=== PATIENT | female | born 1965 | race Caucasian/White ===

== ENCOUNTER → 2021-05-21 | Outpatient (CLI) | payer OTHER ==
--- NOTE | 2021-05-22 13:22 | RAD ---
PROCEDURE: MG BILAT SCREEN+SISI HISTORY: The patient is 55 years old and is seen for Reason: SCREENING / Spl. Instructions: / Histor y: . COMPARISON: July 09, 2018 TECHNIQUE: CC and MLO views of both breasts were obtained. Images were processed by the [employer] computer-aided detection system. DENSITY: The breast parenchyma is extremely dense, which could obscure a lesion on mammography. FINDINGS: No developing mass, suspicious calcifications or architectural distortion. Benign-appear ing calcifications bilaterally, unchanged. IMPRESSION: Negative. No evidence of malignancy. Recommend annual screening mammograms per [employer] guidelines. She will be due in one year. BI-RADS category 2 Benign Patient entered into a reminder system for annual screening mammogram. Electronically signed by: Hans West DO (05/22/2021 1:20 PM) [id number]
== END ==
LOC: MAMMO 07:43
PROVIDERS: ATTEND Family Medicine
DX: Z12.31 Encounter for screening mammogram for malignant neoplasm of breast (principal)
CPT/HCPCS: 77063; 77067